=== PATIENT | female | born 1970 | race Caucasian/White ===

== ENCOUNTER → 2016-03-12 | Outpatient (CLI) | payer OTHER ==
[~2016-03-12] MED LIST: INDO-24 PO
--- NOTE | 2016-03-12 16:55 | MAMMOGRAPHY REPORT ---
BILATERAL DIGITAL DIAGNOSTIC MAMMOGRAM TOMOSYNTHESIS WITH CAD AND TARGETED BILATERAL ULTRASOUND: 02/23 CLINICAL HISTORY: 45-year-old woman presents 6 months after benign biopsy in the 5:00 periareolar le ft breast. She was originally called back from screening for nodular asymmetries in the inferior le ft breast and medial right breast. The biopsy marker clip does not correlate with any of these asym metries. Also follow-up of faint microcalcifications in the left breast. TECHNIQUE: Bilateral breast tomosynthesis in addition to standard 2D mammography was performed. Curr ent study was also evaluated with a Computer Aided Detection (CAD) system. COMPARISON: Comparison is made to exams dated: 09/11/2015 mammogram, 09/11/2015 ultrasound biopsy, 12/2015 ultrasound, 09/03/2015 mammogram, 03/05/2015 mammogram, and 09/01/2014 mammogram - [facility]. BREAST COMPOSITION: There are scattered areas of fibroglandular density in both breasts. FINDINGS: There is a stable ribbon shaped metallic biopsy marker in the 5:00 anterior left breast. The very faint microcalcifications in the medial anterior left breast best seen on the cc view are no longer visualized and may have represented milk of calcium. Given that they were not seen on the current exam, spot magnification views were not obtained. There are multiple subcentimeter circums cribed round and oval masses in the breasts. A dominant oval mass in the approximate 8:00 to 9:00 l eft breast is stable in size compared to prior exams. No new suspicious mass, architectural distort ion or cluster of suspicious microcalcifications is seen in the left breast. There is persistence nodularity in the medial anterior right breast and a few stable grouped microca lcifications. Other circumscribed subcentimeter masses are seen in the right breast on the tomosynt hesis images. No suspicious spiculated or irregular mass, focal architectural distortion or cluster of suspicious microcalcification. Targeted ultrasound was performed in the 9:00 left breast and 4:00 periareolar right breast. There is a microcyst cluster in the 4:00 right breast measuring 9.0 x 4.6 x 6.6 mm. In the 9:[address], 1 cm from the nipple, a similar appearing but smaller microcyst cluster measures 5.5 x 3.9 x 5.0 mm. Both are considered unchanged comparing to the prior ultrasound and are most likely benign. IMPRESSION: ACR-BI-RADS CATEGORY 3: PROBABLY BENIGN, TARGETED ULTRASOUND ACR-BI-RADS CATEGORY 3: [place] OBABLY BENIGN There are multiple circumscribed subcentimeter masses scattered throughout the breasts, most likely representing benign fibrocystic changes. There is no suspicious abnormality or evidence of malignan cy. There are stable microcyst clusters in the left 9:00 and right 4:00 periareolar breasts on ultr asound. Recommend one more attention on follow-up in 12 months with bilateral mammography and repea t targeted ultrasound in the right 4:00 and left 9:00 axes. These results and recommendations were discussed with the patient at the time of the exam. Approximately 10% of breast cancers are not detected with mammography. A negative mammographic repor t should not delay biopsy if a clinically suggestive mass is present. Yuliana Ventura M.D. ay/:03/12/2016 15:20:25 Records Manager: Jessica Cortes, [facility] letter sent: Follow Up Recommended 3 BI-RADS Code: ACR-BI-RADS Category 3: Probably Benign Ultrasound BI-RADS: ACR-BI-RADS Category 3: P robably Benign
== END | disposition home or self-care (01) ==
LOC: C.MAMM 10:28
PROVIDERS: ATTEND Family Medicine
DX: R92.8 Other abnormal and inconclusive findings on diagnostic imaging of breast (principal); N63 Unspecified lump in breast; N60.01 Solitary cyst of right breast; N60.02 Solitary cyst of left breast

== ENCOUNTER → 2016-11-07 | Outpatient (CLI) | payer OTHER ==
[2016-11-07 09:33] LABS: HEMATOCRIT 41.3 % (37-47); MEAN CORPUSCULAR HEMOGLOBIN 30.6 pg (25-34); MEAN CORPUSCULAR HGB CONC 33.7 g/dl (32-36); MEAN PLATELET VOLUME 9.6 fL (7.4-10.4); PLATELET COUNT 244 K/uL (130-400); RED BLOOD COUNT 4.54 M/uL (4.2-5.4); WHITE BLOOD COUNT 6.08 K/uL (4.8-10.8)
[2016-11-07 09:57] LABS: ALT/SGPT 26 U/L (12-78); BLOOD UREA NITROGEN 17 mg/dl (7-18); BUN/CREATININE RATIO 20.6 (10-20); CALCIUM 9.1 mg/dl (8.5-10.1); CARBON DIOXIDE 28 mmol/L (21-32); CHLORIDE 108 mmol/L (98-107); CHOLESTEROL 146 mg/dl (0-200); CREATININE 0.82 mg/dl (0.60-1.20); GLUCOSE 89 mg/dl (70-99); POTASSIUM 3.9 mmol/L (3.5-5.1); SODIUM 142 mmol/L (136-145); TRIGLYCERIDES 60 mg/dl (0-150); VERY LOW DENSITY LIPOPROT CALC 12 mg/dl
[2016-11-07 10:01] LABS: ALB/GLOB RATIO 1.1 (0.9-2); ALKALINE PHOSPHATASE 104 U/L (45-117); AST/SGOT 16 U/L (15-37); CHOLESTEROL/HDL RATIO 2.7; HDL CHOLESTEROL 54 mg/dl; LDL CHOLESTEROL CALCULATED 80 mg/dl
== END | disposition home or self-care (01) ==
LOC: C.LAB 07:56
PROVIDERS: ATTEND Physician Assistant Medical
DX: E78.5 Hyperlipidemia, unspecified (principal); Z13.1 Encounter for screening for diabetes mellitus

== ENCOUNTER → 2017-03-04 | Outpatient (CLI) | payer OTHER ==
--- NOTE | 2017-03-04 10:49 | DIAGNOSTIC IMAGING REPORT ---
LUMBAR SPINE 5 VIEWS CLINICAL HISTORY: Low back pain. Degenerative disc disease. FINDINGS: 5 views of the lumbar spine are correlated with abdominal CT dated 04/02/12. The skeletal structures are well mineralized. There is no radiographic evidence of fracture or malalignment. Vertebral body height and alignment are maintained. The transverse and spinous processes are intact. There is no evidence of spondylolysis. Small anterior osteophytes are seen throughout. The intervertebral disc spaces are well-maintained. The visualized bony pelvis appears intact. There is a nonobstructed abdominal bowel gas pattern. IMPRESSION: No acute bony abnormality is seen involving the lumbosacral spine. Electronically signed by: Dequan Jane M.D. 03/04/2017 10:48 AM Dictated Date/Time: 03/04/2017 10:47 AM
== END | disposition home or self-care (01) ==
LOC: C.RAD 10:01
PROVIDERS: ATTEND Physician Assistant Medical
DX: M51.36 Other intervertebral disc degeneration, lumbar region (principal)

== ENCOUNTER 2017-03-06 17:45 | Emergency (ER) | payer OTHER ==
[~2017-03-06] VITALS: Ht 165.1 cm; Wt 103.0 kg
[2017-03-06 17:55] VITALS: TEMP 36.8; Ht 165.1 cm; Wt 103.0 kg
[2017-03-06] MEDS ORDERED: MoRPHine SULFATE 10 MG/ML CARP/VIAL ONE (17:59)
[2017-03-06] MEDS ORDERED: KETOROLAC TROMETHAMINE 30 MG/ML VIAL IV STA (18:19)
[2017-03-06] MEDS ORDERED: DIAZEPAM 5MG TAB PO STA (18:19)
--- NOTE | 2017-03-06 18:23 | EMERGENCY ROOM VISIT NOTE ---
History First contact with patient: 18:06 Chief Complaint: BACK PAIN Stated Complaint: BACK PAIN History of Present Illness The patient is a 46 year old female who presents to the Emergency Room with complaints of back pain. The patient states that she "threw her back out." She states that she was carrying 20 pound boxes and loading them into a car today. Approximately 20 minutes later, she felt a "twinge" in her back while getting into her car. She states that she had some back pain then, which was exacerbated when she was standing while at work. She states that for the past few hours, she has had very severe back spasms and this makes it difficult for her to move. She tried heat, ice and Tylenol without relief. She does report a history of bulging disks. She states that she has "thrown her back out" 4 times in the past 3 months. She is seeing her primary care provider and had x- rays done here recently. She denies any history of back surgery. She denies any bowel/bladder incontinence, urinary retention, urinary symptoms, saddle anesthesias, fevers, nausea/vomiting, abdominal pain or numbness/weakness of the lower extremities. Review of Systems A 6 point review of systems was reviewed with the patient with pertinent positives and negatives as per history of present illness. All else were negative. Past Medical/Surgical History Medical Problems: (1) Meningioma Social History Smoking Status: Never Smoker Current/Historical Medications Scheduled Cyclobenzaprine Hcl (Flexeril), 10 MG PO TID Scheduled PRN Hydrocodone/Acetaminophen 5MG/325MG ([place] 5MG/325MG), 1-2 TABLET PO Q4H PRN for Pain Physical Exam Vital Signs Date Time Temp Pulse Resp B/P (MAP) Pulse Ox O2 Delivery O2 Flow Rate FiO2 03/06/17 19:49 72 20 127/79 99 03/06/17 17:55 36.8 69 20 135/80 100 Room Air Physical Exam VITALS: Vitals are noted on the nurse's note and reviewed by myself. Vital signs stable. GENERAL: This is a 38-year-old female, in no acute distress, sitting up in bed, well-developed well-nourished. SKIN: The skin was without rashes. HEART: Regular rate and rhythm without murmurs gallops or rubs. LUNGS: Clear to auscultation bilaterally without wheezes, rales or rhonchi. ABDOMEN: Soft, nontender. MUSCULOSKELETAL: There is no tenderness of the lumbar spinous processes. Full range of motion of bilateral lower extremities. Strength 5/5 bilateral lower extremities. NEURO: Patient was alert and oriented to person place and time. Normal sensation. Medical Decision & Procedures Medications Administered Medications (Trade) Dose Ordered Sig/Imelda Route Start Time Stop Time Status Last Admin Dose Admin Diazepam (Valium Tab) 10 mg NOW STAT PO 03/06/17 18:19 03/06/17 18:21 DC 03/06/17 18:53 10 MG Ketorolac Tromethamine (Toradol Inj) 30 mg NOW STAT IV 03/06/17 18:19 03/06/17 18:21 DC 03/06/17 18:53 30 MG Acetaminophen/ Hydrocodone Bitart ([place] 5/325mg Home Pack) 1 homepack UD ONCE PO 03/06/17 19:45 03/06/17 19:46 DC 03/06/17 19:46 1 HOMEPACK Medical Decision Differential diagnosis includes cauda equina syndrome, cord compression, disc herniation, muscle spasm, lumbar strain, epidural abscess, malignancy, transverse myelitis, urinary tract infection, colitis, diverticulitis, kidney stone, among others. The patient was evaluated as above. There is no concern for cauda equina syndrome or cord compression on exam. Patient had x-rays just a few days ago which were unremarkable. Patient's symptoms are most likely due to a muscle spasm. She was treated with 10 mg Valium by mouth and 31 comes Toradol IV. She did receive 6 mg of morphine en route to the hospital. She did feel better after this treatment and was able to get up and walk to the bathroom. She was given a home pack of [place] as well as prescription for this and Flexeril. Conservative measures were discussed with the patient at length. She was informed that she will need close follow-up with her primary care provider for further hydration of her ongoing back problems. She may benefit from physical therapy. She was instructed to return here if she develops worsening symptoms, fever, leg numbness/weakness, bowel/bladder incontinence or any other new/ concerning symptoms. She verbalized understanding of my assessment and treatment plan and was discharged home in good condition. Medication Reconcilliation Current Medication List: was personally reviewed by me Blood Pressure Screening Patient's blood pressure: Normal blood pressure Impression Primary Impression: Lumbar paraspinal muscle spasm Departure Information Dispostion Home / Self-Care Condition GOOD Prescriptions Cyclobenzaprine Hcl (FLEXERIL) 10 Mg Tab 10 MG PO TID for 3 Days, #9 TAB Prov: Kassie Salinas PA-C 03/06/17 Hydrocodone/Acetaminophen 5MG/325MG ([place] 5MG/325MG) Tab 1-2 TABLET PO Q4H Y for Pain, #10 TAB For Initial Treatment Prov: Kassie Salinas PA-C 03/06/17 Referrals Zenon Adkins D.O. (PCP) Patient Instructions My [facility] Additional Instructions You have been treated in the Emergency Department for Back Pain. You have received pain medicine in the emergency department which impairs your ability to operate a vehicle. It is illegal for you to drive after receiving these medicines. You have been prescribed [place] to be used for pain control. This is a narcotic medication. You cannot drive or consume alcohol while on this medicine. This medicine should only be used for pain that cannot be controlled with over-the- counter pain medicines. You have been prescribed Flexeril (cyclobenzaprine) 1-2 tabs orally, three times per day. Do NOT exceed 30 mg (6 tabs) per day. Take your first dose at bedtime as it can make you drowsy. Always take all medications as prescribed. For pain control, you can use the following [id number] medicines (if >12 yo): - Regular strength (325mg/tab) Tylenol (acetaminophen) 2 tabs every 4-6 hours as needed. Do not exceed 12 tablets in a 24 hour period. Avoid taking more than 4 grams (4000 mg) of Tylenol per day. This includes any other sources of acetaminophen you may take on a regular basis. - Regular strength (200 mg/tab) Advil (ibuprofen) 1-2 tabs every 4-6 hours as needed. Do not exceed a dose of 3200 mg per day. A heating pad can be used over the area for continued soothing relief. You should schedule a follow-up appointment in 2-3 days with your Primary Care Provider for further evaluation and treatment of your back pain. Return to the Emergency Department if your current symptoms worsen despite treatment course outlined above, or if you develop any of the following symptoms : intractable pain despite aforementioned treatment course, loss of control of your bowel or bladder, numbness or tingling in your groin, or development of a fever.
[2017-03-06] MEDS ORDERED: CYCL10TA6 PO (19:38)
[2017-03-06] MEDS ORDERED: HYDR-5688 PO (19:38)
[2017-03-06] MEDS ORDERED: NORCO 5/325MG HOME PACK PO ONE (19:45)
[2017-03-06 19:49] VITALS: BP 127/79; PULSE 72; O2SAT 99
== END 2017-03-06 19:50 | disposition home or self-care (01) ==
LOC: EDBD 17:45 → C.EDC 17:46
DX: M62.830 Muscle spasm of back (principal); Z85.9 Personal history of malignant neoplasm, unspecified

== ENCOUNTER → 2017-03-18 | Outpatient (CLI) | payer OTHER ==
[~2017-03-18] MED LIST changes: +HYDR-5688 PO; -INDO-24 PO
--- NOTE | 2017-03-18 15:40 | MAMMOGRAPHY REPORT ---
BILATERAL DIGITAL SCREENING MAMMOGRAM TOMOSYNTHESIS WITH CAD: 03/18/2017 CLINICAL HISTORY: Routine screening. TECHNIQUE: Breast tomosynthesis in addition to standard 2D mammography was performed. Current study was also evaluated with a Computer Aided Detection (CAD) system. COMPARISON: Comparison is made to exams dated: 08/22/2014 mammogram, 03/05/2015 mammogram, 09/03/2015 m ammogram, 09/11/2015 mammogram, 03/12/2016 mammogram - [facility], and 02/26/2009 mammo gram - [facility]. BREAST COMPOSITION: There are scattered areas of fibroglandular density in both breasts. FINDINGS: There is a stable ribbon-shaped biopsy marker clip in the anterior left breast. An oval ci rcumscribed mass in the infra left breast has decreased in size comparing to prior mammograms, confir tong benignity. No obvious new suspicious mass, developing asymmetry, focal area of architectural di stortion or new suspicious microcalcifications are seen bilaterally. IMPRESSION: ACR BI-RADS CATEGORY 1: NEGATIVE There is no mammographic evidence of malignancy in the breasts. Based on a prior diagnostic mammogra m and ultrasound report, the patient was to have another follow-up targeted right breast ultrasound i n 12 months to ensure stability of probable microcyst clusters. However, given their benign sonograp hic appearance and stability based on prior ultrasounds, as well as lack of suspicious mammographic f indings, these microcyst clusters are considered benign. Recommend routine screening tomosynthesis m ammography in one year. Approximately 10% of breast cancers are not detected with mammography. A negative mammographic report should not delay biopsy if a clinically suggestive mass is present. Yuliana Ventura M.D. ay/:03/18/2017 12:41:02 Dialysis Registered Nurse: Sahil VALDES(Dhruv)(Delia), [facility] letter sent: Normal 1/2 BI-RADS Code: ACR BI-RADS Category 1: Negative
== END | disposition home or self-care (01) ==
LOC: C.MAMM 11:42
PROVIDERS: ATTEND Physician Assistant Medical
DX: Z12.31 Encounter for screening mammogram for malignant neoplasm of breast (principal)